=== PATIENT | male | born 1955 | race Caucasian/White ===

== ENCOUNTER 2023-01-15 09:19 | Outpatient (CLI) | payer OTHER | END 2023-01-15 09:20 | disposition home or self-care (01) | LOC: NM 09:19 | PROVIDERS: ATTEND Specialist | DX: T84.84XA Pain due to internal orthopedic prosthetic devices, implants and grafts, initial encounter (principal); M17.12 Unilateral primary osteoarthritis, left knee; Z96.652 Presence of left artificial knee joint; R94.8 Abnormal results of function studies of other organs and systems | CPT/HCPCS: 78315; A9503 ==